=== PATIENT | male | born 1965 ===

== ENCOUNTER → 2017-01-15 | Outpatient (CLI) | payer OTHER | LOC: BMCIMAGING 16:35 | PROVIDERS: ATTEND Family Medicine | DX: S99.922A Unspecified injury of left foot, initial encounter (principal) ==

== ENCOUNTER 2017-02-10 10:34 | Day surgery (SDC) | payer OTHER ==
[2017-02-10] MEDS ORDERED: NS 500 ML IV ONE (10:50)
[2017-02-10] MEDS ORDERED: LIDOCAINE 1% 2 ML INJ ID PRN (10:50)
[2017-02-10 11:10] VITALS: TEMP 97.9
[2017-02-10] MEDS ORDERED: fentaNYL 100 MCG/2 ML INJ ONE (12:08)
[2017-02-10] MEDS ORDERED: MIDAZOLAM 2 MG/2 ML VIAL ONE (12:08)
--- NOTE | 2017-02-10 12:14 | PDPROPOC ---
Sedation Plan of Care Sedation Plan of Care: vital signs stable, mental status noted, patient educated of risks, benefits, alternatives, patient can tolerate sedation ASA Classification: ASA 1 Planned drugs: fentanyl, midazolam Mallampati Score: Class 1 Mallampati Reference Image: 1
--- NOTE | 2017-02-10 12:16 | PDGENHP ---
History & Physical Chief Complaint: phx polyps History of Present Illness: piecemeal polypectomy last year Pertinent Past, Social, Family History: no fhx cc or polyps. no tobacco, no alcohol Relevant Physical Exam: A+Ox3. CTA. S1S2, RRR. +BS, soft nt Cardiorespiratory Assessment: class 1
--- NOTE | 2017-02-10 12:58 | POSTOPPROG ---
Post Op Note Date of Operation: 02/10/17 Surgeon: Smith Currie Anesthesia: IV Sedation (fentanyl 100mcg Versed 5 mg IV) Pre-op Diagnosis: piecemeal polypectomy one year ago Post-op Diagnosis: residual polyp tissue at previous site, s/p snare, APC Indication: piecemeal polypectomy 12/2015 Procedure: colon with snare, inject and APC Findings: residual polyp tissue at previous polypectomy site Inf/Abcess present in the surg proc area at time of surgery?: No EBL: Minimal Total fluids administered: 200ml NS Complications: none immediate
[2017-02-10 13:07] VITALS: PULSE 44
--- NOTE | 2017-02-10 13:07 | GIREPORT ---
[facility] Surgical Services - Endoscopy Department Patient Name: Jesse Todd Procedure Date: 02/10/2017 11:53 AM Patient Type: Outpatient Attending MD/ ER Physician: Dom Gamble Procedure: Colonoscopy Indications: Surveillance: Piecemeal removal of large sessile adenoma last colonosco py (< 3 yrs) Providers: Giovanni Currie MD Medicines: Fentanyl 100 micrograms IV, Midazolam 6 mg IV Complications: No immediate complications. Description of Procedure: After obtaining informed consent, the scope was passed under direct vision. Throughout the proce dure, the patient's blood pressure, pulse, and oxygen saturations were monitored continuously. The Colonoscope with irrigation channel was introduced through the anus and advanced to the terminal ileum, with identification of the appendiceal orifice and IC valve. The colonoscopy was performe d without difficulty. The patient tolerated the procedure well. The quality of the bowel preparati on was good. Findings: The digital rectal exam was normal. The terminal ileum appeared normal. A post polypectomy scar was found in the proximal transverse colon. There was residual polypoid tissue. The polyp was removed with a hot snare. Resection and retrieval were complete. Fulgurati on to ablate the remaining base of the lesion by argon plasma was successful. Estimated blood loss: no ne. Area was tattooed with an injection of 3 mL of Kim ink. The exam was otherwise without abnormality. Estimated Blood Loss: Estimated blood loss: none. Post Op Diagnosis: - The examined portion of the ileum was normal. - Post-polypectomy scar in the proximal transverse colon. Treated with argon plasma coagulation (APC). Tattooed. - The examination was otherwise normal. Recommendation: - Await pathology results. - My office will call with the pathology result with 5-7 days. If you have not heard from my off ice by 04-29, do not assume the pathology is normal, please call [phone] to get the pathology r eults. - Repeat colonoscopy in 2 years for surveillance based on pathology results. - High fiber diet. - Avoid Aspirin and NSAID's for 7-10 days except as used for cardic or stroke prevention. - Patient has a contact number available for emergencies. The signs and symptoms of potential de layed complications were discussed with the patient. Return to normal activities tomorrow. Written discharge instructions were provided to the patient. - Patient medication history reviewed. Patient is appropriately not taking any medications. - Discharge patient to home (ambulatory). - Return to primary care physician as previously scheduled. - Thank you for allowing me to help in your patient's care. Do not hesitate to call with any questions. Attending Participation: I personally performed the entire procedure. Rosey Davila M.D Giovanni Currie MD 02/10/2017 1:07:28 PM Number of Addenda: 0 Note Initiated On: 02/10/2017 11:53 AM Total Procedure Duration Time 0 hours 28 minutes 23 seconds [email or web address]
[2017-02-10 14:21] VITALS: BP 112/75; RESP 11; O2SAT 97
== END 2017-02-10 14:23 | disposition home or self-care (01) ==
LOC: FSGY 10:34
PROVIDERS: ATTEND Internal Medicine Gastroenterology
DX: Z12.11 Encounter for screening for malignant neoplasm of colon (principal); D12.3 Benign neoplasm of transverse colon; Z86.010 Personal history of colon polyps
CPT/HCPCS: J2250; J3010